=== PATIENT | female | born 2000 | race Caucasian/White ===

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

== ENCOUNTER → 2018-03-05 | Outpatient (CLI) | payer BC ==
[2018-03-05 11:23] LABS: APPEARANCE,URINE CLOUDY; BILIRUBIN,URINE NEGATIVE (NEGATIVE); COLOR,URINE AMBER; GLUCOSE, URINE NEGATIVE (NEGATIVE); KETONES,URINE 20 mg/dL (NEGATIVE); PROTEIN,URINE 100 mg/dL (NEGATIVE); URINE SPECIFIC GRAVITY 1.026
[2018-03-05 11:24] LABS: LEUKOCYTE ESTERASE,URINE NEGATIVE (NEGATIVE); NITRITE,URINE NEGATIVE (NEGATIVE)
[2018-03-05 11:38] LABS: ALANINE AMINOTRANSFERASE 18 U/L (5-35); ALBUMIN 4.6 g/dL (3.7-5.6); ALKALINE PHOSPHATASE 54 U/L (50-135); ANION GAP 14 (5-19); ASPARTATE AMINO TRANSFERASE 19 U/L (5-30); BILIRUBIN,DIRECT 0.2 mg/dL (0.0-0.4); BILIRUBIN,TOTAL 0.9 mg/dL (0.2-1.3); BLOOD UREA NITROGEN 10 mg/dL (7-20); CALCIUM 9.9 mg/dL (8.4-10.2); CARBON DIOXIDE 24 mmol/L (22-30); CHLORIDE 105 mmol/L (98-107); GLUCOSE 95 mg/dL (75-110); POTASSIUM 4.1 mmol/L (3.6-5.0); SODIUM 143.2 mmol/L (137-145); TOTAL PROTEIN 7.8 g/dL (6.3-8.2)
[2018-03-06 17:02] LABS: CALCIUM RANDOM URINE 47.3 mg/dL (Not Estab.)
== END ==
LOC: OD 09:52
PROVIDERS: ATTEND Pediatrics
DX: R81 Glycosuria (principal)
CPT/HCPCS: 36415; 80053; 81001; 82340; 82570; 83036; 83525

== ENCOUNTER → 2018-04-21 | Outpatient (CLI) | payer BC ==
--- NOTE | 2018-04-21 15:12 | RADIOLOGY REPORT (SQ) ---
EXAM DESCRIPTION: U/S RETROPERITON (RENAL/AORTA) COMPLETED DATE/TIME: 04/21/2018 2:30 pm REASON FOR STUDY: R31.21 ASYMPTOMATIC MICROSCOPIC HEMATURIA R31.21 ASYMPTOMATIC MICROSCOPIC HEMATUR IA COMPARISON: 03/18/2013 TECHNIQUE: Dynamic and static grayscale images acquired of the kidneys and bladder and recorded on P ACS. Additional selected color Doppler and spectral images recorded. LIMITATIONS: None. FINDINGS: RIGHT KIDNEY: Normal size, 9.8 cm. Normal echogenicity. No solid or suspicious masses. No hydronephrosis. No calcifications. LEFT KIDNEY: Normal size, 12.6 cm. Normal echogenicity. No solid or suspicious masses. No hydronephr osis. No calcifications. BLADDER: No masses. OTHER FINDINGS: No other significant finding. IMPRESSION: NORMAL RENAL AND BLADDER ULTRASOUND. TECHNICAL DOCUMENTATION: JOB ID: [id number] [employer]- All Rights Reserved Reading location - IP/workstation name: [email or web address]
== END ==
LOC: RAD 14:11
PROVIDERS: ATTEND Pediatrics Pediatric Nephrology
DX: R31.21 Asymptomatic microscopic hematuria (principal)
CPT/HCPCS: 76770

== ENCOUNTER 2018-10-24 11:26 | Emergency (ER) | payer BC ==
[2018-10-24] MEDS ORDERED: ONDANSETRON 4 MG TAB.RAPDIS PO ONE ×3 (11:54→14:27)
--- NOTE | 2018-10-24 11:56 | ER Document Report ---
ED Medical Screen (RME) - General Chief Complaint: Nausea/Vomiting/Diarrhea Stated Complaint: VOMITING Time Seen by Provider: 10/24/18 11:51 Primary Care Provider: MARYANN KUMAR MD [Primary Care Provider] - Follow up as needed Notes: Patient presents emergency department with reports that she felt some nausea last night. She reports she vomited 4-5 times this morning and had diarrhea one time. Reports she may BE dehydrated patient , reports she has no energy. No other family members are ill. Reports she is seeing a specialist for possible lupus. I have greeted and performed a rapid initial assessment of this patient. A comprehensive ED assessment and evaluation of the patient, analysis of test results and completion of the medical decision making process will be conducted by additional ED providers. Dictation of this chart was performed using voice recognition software; therefore, there may be some unintended grammatical errors. TRAVEL OUTSIDE OF THE [place] IN LAST 30 DAYS: No - Related Data Allergies/Adverse Reactions: latex [Latex] Allergy (Verified 10/24/18 11:27) nickel [Nickel] Allergy (Verified 10/24/18 11:27) Penicillins Allergy (Verified 10/24/18 11:27) Past Medical History - Past Medical History Cardiac Medical History: Denies: Hx DVT, Hx Peripheral Vascular Disease Renal/ Medical History: Denies: Hx Peritoneal Dialysis - Immunizations Immunizations up to date: Yes Physical Exam - Vital signs Vitals: Temp Pulse Resp BP Pulse Ox 97.5 F 66 16 126/74 H 99 10/24/18 11:31 10/24/18 11:31 10/24/18 11:31 10/24/18 11:31 10/24/18 11:31 Course - Vital Signs Vital signs: Temp Pulse Resp BP Pulse Ox 97.5 F 66 16 126/74 H 99 10/24/18 11:31 10/24/18 11:31 10/24/18 11:31 10/24/18 11:31 10/24/18 11:31 Doctor's Discharge - Discharge Referrals: MARYANN KUMAR MD [Primary Care Provider] - Follow up as needed
[2018-10-24 12:22] LABS: ABSOLUTE LYMPHOCYTES (AUTO) 1.1 10^3/uL (0.5-4.7); ABSOLUTE MONOCYTES (AUTO) 0.4 10^3/uL (0.1-1.4); ABSOLUTE NEUT (AUTO) 6.4 10^3/uL (1.7-8.2); BASOPHILS % (AUTO) 0.2 % (0-2); EOSINOPHILS % (AUTO) 0.5 % (0-6); HEMATOCRIT 38.9 % (36.0-47.0); HEMOGLOBIN 13.6 g/dL (12.0-15.5); LYMPHOCYTES % (AUTO) 13.5 % (13-45); MEAN CORPUSCULAR HEMOGLOBIN 29.8 pg (27.0-33.4); MEAN CORPUSCULAR HGB CONC 34.8 g/dL (32.0-36.0); MEAN CORPUSCULAR VOLUME 86 fl (80-97); MONOCYTES % (AUTO) 4.6 % (3-13); PLATELET COUNT 231 10^3/uL (150-450); RED BLOOD COUNT 4.55 10^6/uL (3.72-5.28); RED CELL DISTRIBUTION WIDTH 13.5 % (11.5-14.0); SEGMENTED NEUTROPHILS % (AUTO) 81.2 % (42-78); TOTAL CELLS COUNTED % (AUTO) 100 %; WHITE BLOOD COUNT 7.9 10^3/uL (4.0-10.5)
[2018-10-24 12:23] LABS: APPEARANCE,URINE SLIGHTLY-CLOUDY; BILIRUBIN,URINE NEGATIVE (NEGATIVE); COLOR,URINE YELLOW; GLUCOSE, URINE NEGATIVE (NEGATIVE); KETONES,URINE 20 mg/dL (NEGATIVE); LEUKOCYTE ESTERASE,URINE TRACE (NEGATIVE); NITRITE,URINE NEGATIVE (NEGATIVE); PROTEIN,URINE NEGATIVE (NEGATIVE); URINE SPECIFIC GRAVITY 1.014; UROBILINOGEN,URINE NEGATIVE mg/dL (<2.0)
[2018-10-24 12:33] LABS: ALANINE AMINOTRANSFERASE 21 U/L (9-52); ALBUMIN 4.5 g/dL (3.5-5.0); ALKALINE PHOSPHATASE 40 U/L (38-126); ANION GAP 7 (5-19); ASPARTATE AMINO TRANSFERASE 15 U/L (14-36); BILIRUBIN,DIRECT 0.2 mg/dL (0.0-0.4); BILIRUBIN,TOTAL 0.5 mg/dL (0.2-1.3); BLOOD UREA NITROGEN 8 mg/dL (7-20); CALCIUM 9.8 mg/dL (8.4-10.2); CARBON DIOXIDE 23 mmol/L (22-30); CHLORIDE 109 mmol/L (98-107); GLUCOSE 99 mg/dL (75-110); POTASSIUM 4.4 mmol/L (3.6-5.0); SODIUM 139.4 mmol/L (137-145); TOTAL PROTEIN 7.3 g/dL (6.3-8.2)
[2018-10-24] MEDS ORDERED: ONDANSETRON ODT 4 MG TAB (6 TAB/ER DISP) PO PRN (14:28)
[2018-10-24 14:41] VITALS: BP 120/67
--- NOTE | 2018-10-24 14:44 | ER Document Report ---
ED General - General Chief Complaint: Nausea/Vomiting/Diarrhea Stated Complaint: VOMITING Time Seen by Provider: 10/24/18 11:51 Primary Care Provider: MARYANN KUMAR MD [NO LOCAL MD] - Follow up as needed TRAVEL OUTSIDE OF THE [place] IN LAST 30 DAYS: No - HPI Notes: Patient is a 18-year-old female who presents emergency department for evaluation of nausea, vomiting, abdominal pain. She had 4-5 episodes of nonbloody, nonbilious emesis. One episode of diarrhea. She complains of diffuse periumbilical abdominal pain. No known fevers. Still urinating. No gross selvin turia, no dysuria, no urinary frequency. 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 Denies: Hx Peritoneal Dialysis Musculoskeletal Medical History: Reports Other - Positive ARLETH, being worked up for lupus - Immunizations Immunizations up to date: Yes Review of Systems - Review of Systems Constitutional: No symptoms reported EENT: No symptoms reported Cardiovascular: No symptoms reported Respiratory: No symptoms reported Gastrointestinal: See HPI Genitourinary: No symptoms reported Female Genitourinary: No symptoms reported Musculoskeletal: No symptoms reported Hematologic/Lymphatic: No symptoms reported Physical Exam - Vital signs Vitals: Temp Pulse Resp BP Pulse Ox 97.5 F 66 16 126/74 H 99 10/24/18 11:31 10/24/18 11:31 10/24/18 11:31 10/24/18 11:31 10/24/18 11:31 - Notes Notes: Vital signs reviewed, please refer to chart. Head is normocephalic, atraumatic. Pupils equal round, reactive to light. Neck is supple without meningismus. Heart is regular rate and rhythm. Lungs are clear to auscultation bilaterally. Abdomen is soft, diffusely tender without rebound or guarding, normoactive bowel sounds throughout. Extremities without cyanosis, clubbing. Posterior calves are nontender. Peripheral pulses are equal. Skin is warm and dry. Patient is awake, alert, neurological exam is nonfocal. Course - Re-evaluation Re-evalutation: 10/24/18 14:43 Patient presents emergency department for evaluation. She was initially medicated through triage. She first refused any sort of Zofran, been concerned that it would affect her nephropathy. She eventually did accept some Zofran, had some "dry heaving" following that. I did offer her Phenergan, which she refused, stating "I do not want to be knocked out." I explained her I was happy to give her more Zofran. She is not showing any signs of dehydration. There is a small blood in her urine, not surprising given her renal disease. Mom is given instructions to keep her hydrated with small, frequent sips of fluids. Rest. Zofran as needed for nausea. Return to the ED with worsening or new concerning symptoms of any sort. - Vital Signs Vital signs: Temp Pulse Resp BP Pulse Ox 97.5 F 66 16 126/74 H 99 10/24/18 11:31 10/24/18 11:31 10/24/18 11:31 10/24/18 11:31 10/24/18 11:31 - Laboratory Result Diagrams: 10/24/18 12:00 10/24/18 12:00 Laboratory results interpreted by me: 10/24/18 10/24/18 10/24/18 11:40 12:00 12:00 Seg Neutrophils % 81.2 H Chloride 109 H Urine Ketones 20 H Urine Blood LARGE H Ur Leukocyte Esterase TRACE H Discharge - Discharge Clinical Impression: Generalized abdominal pain Nausea and vomiting Qualifiers: Vomiting type: unspecified Vomiting Intractability: non-intractable Qualified Code(s): R11.2 - Nausea with vomiting, unspecified Diarrhea Qualifiers: Diarrhea type: presumed infectious Qualified Code(s): R19.7 - Diarrhea, unspe cified Condition: Stable Disposition: HOME, SELF-CARE Instructions: Abdominal Pain ([facility]), Antinausea Medication ([facility]), Viral Syndrome ([facility]), Vomiting ([facility]) Additional Instructions: Rest. Small, frequent sips of clear liquids. Advance slowly to bland diet. Zofran as needed for nausea. Follow-up with primary care this week. Return to the emergency department with worsening or new concerning symptoms. Referrals: MARYANN KUMAR MD [NO LOCAL MD] - Follow up as needed
== END 2018-10-24 14:54 | disposition home or self-care (01) ==
LOC: ER 11:26
DX: R11.2 Nausea with vomiting, unspecified (principal); R10.84 Generalized abdominal pain; R19.7 Diarrhea, unspecified; N02.9 Recurrent and persistent hematuria with unspecified morphologic changes; Z91.040 Latex allergy status; Z91.048 Other nonmedicinal substance allergy status; Z88.0 Allergy status to penicillin
CPT/HCPCS: 99284; 36415; 85025; 81025; 80053; 81001; S0119

== ENCOUNTER → 2018-11-09 | Outpatient (CLI) | payer BC ==
[2018-11-11 07:32] LABS: HEPATITIS B SURFACE AB QUANT <3.1 mIU/mL (Immunity>9)
[2018-11-11 13:41] LABS: VARICELLA ZOSTER IGG AB <135 index (Immune >16)
== END ==
LOC: OD 16:12
PROVIDERS: ATTEND Pediatrics
DX: Z02.0 Encounter for examination for admission to educational institution (principal)
CPT/HCPCS: 36415; 86317; 86787

== ENCOUNTER 2020-01-12 20:44 | Emergency (ER) | payer BC ==
[2020-01-12 20:52] VITALS: BP 138/78
--- NOTE | 2020-01-12 21:05 | ER Document Report ---
ED Medical Screen (RME) - General Chief Complaint: Eye Pain Stated Complaint: EYE IRRITATION/PAIN,NAUSEA Time Seen by Provider: 01/12/20 20:58 Primary Care Provider: RAAD DEL ROSARIO MD [Primary Care Provider] - Follow up as needed Mode of Arrival: Ambulatory Information source: Patient Notes: 19-year-old female presented to ED for complaint of eye irritation. She states it was itchy this morning and then she started rubbing it. Now it is red and swollen. She states she is having a lot more drainage now. She states it feels like there is something in the eye now. Patient is alert oriented respirations regular and unlabored speaking in full sentences. I have informed her that I will order a visual acuity and order a eye exam for when she is in the bed. Patient states that she needs her eye exam tonight. I told the patient that she will get an eye exam tonight when she gets a room. I have greeted and performed a rapid initial assessment of this patient. A comprehensive ED assessment and evaluation of the patient, analysis of test results and completion of medical decision making process will be conducted by an additional ED providers. TRAVEL OUTSIDE OF THE [place] IN LAST 30 DAYS: No - Related Data Allergies/Adverse Reactions: latex [Latex] Allergy (Verified 10/24/18 11:27) nickel [Nickel] Allergy (Verified 10/24/18 11:27) Penicillins Allergy (Verified 10/24/18 11:27) Past Medical History - Social History Frequency of alcohol use: None Drug Abuse: None - Past Medical History Cardiac Medical History: Denies: Hx DVT, Hx Peripheral Vascular Disease Pulmonary Medical History: Reports: Hx Asthma Renal/ Medical History: Denies: Hx Peritoneal Dialysis - Immunizations Immunizations up to date: Yes Physical Exam - Vital signs Vitals: Temp Pulse Resp BP Pulse Ox 98.0 F 90 16 138/78 H 100 01/12/20 20:50 01/12/20 20:50 01/12/20 20:50 01/12/20 20:50 01/12/20 20:50 Course - Vital Signs Vital signs: Temp Pulse Resp BP Pulse Ox 98.0 F 90 16 138/78 H 100 01/12/20 20:50 01/12/20 20:50 01/12/20 20:50 01/12/20 20:50 01/12/20 20:50 Doctor's Discharge - Discharge Referrals: RAAD DEL ROSARIO MD [Primary Care Provider] - Follow up as needed
== END 2020-01-13 00:45 | disposition left against medical advice (07) ==
LOC: ER 20:44
DX: H57.9 Unspecified disorder of eye and adnexa (principal)
CPT/HCPCS: 99281